=== PATIENT | male | born 2000 | race Caucasian/White ===

== ENCOUNTER 2023-05-15 14:23 | Emergency (ER) | payer SELFPAY ==
[~2023-05-15] VITALS: Ht 185.4 cm; Wt 93.0 kg
[2023-05-15 14:55] VITALS: O2SAT 98
[2023-05-15] MEDS ORDERED: TETRACAINE HCL 0.5% OPTH SOLN 4 ML BTL OP ONE (15:15)
[2023-05-15] MEDS ORDERED: EYE IRRIGATION (OPTH) 120 ML BTL OP ONE (15:15)
[2023-05-15] MEDS ORDERED: FLUORESCEIN SOD(OPTH) 1 MG STRP OP ONE (15:45)
[2023-05-15] MEDS ORDERED: CYCLOPENTOLATE HCL 1% OPTH SOLN 2ML BTL OD ONE (16:00)
[2023-05-15] MEDS ORDERED: HYDROCODON-ACE1 EA12 PO (16:35)
== END 2023-05-15 16:39 | disposition home or self-care (01) ==
LOC: ER 14:28
DX: T15.01XA Foreign body in cornea, right eye, initial encounter (principal); H16.021 Ring corneal ulcer, right eye; W26.8XXA Contact with other sharp object(s), not elsewhere classified, initial encounter; Y92.9 Unspecified place or not applicable
CPT/HCPCS: 99284